=== PATIENT | female | born 1995 | race Caucasian/White ===

== ENCOUNTER → 2016-06-04 | Outpatient (CLI) | payer BC, OTHER ==
--- NOTE | 2016-06-04 14:27 | DIAGNOSTIC IMAGING REPORT ---
RIGHT WRIST W/NAVICULAR MIN 3 VIEWS CLINICAL HISTORY: RIGHT WRIST PAIN Right pain COMPARISON: None. DISCUSSION: The bones and joint spaces appear intact. There is no evidence of fracture, dislocation or bony disease. There is no evidence for soft tissue swelling. IMPRESSION: Negative study. Electronically signed by: Luis Alberto Díaz M.D. 06/04/2016 2:26 PM Dictated Date/Time: 06/04/2016 2:25 PM
== END | disposition home or self-care (01) ==
LOC: C.RDSM 14:18
PROVIDERS: ATTEND Family Medicine
DX: M25.531 Pain in right wrist (principal)

== ENCOUNTER → 2017-01-28 | Outpatient (CLI) | payer BC, OTHER ==
--- NOTE | 2017-01-28 07:55 | DIAGNOSTIC IMAGING REPORT ---
MRI THE RIGHT KNEE NO CONTRAST CLINICAL HISTORY: Right medial knee pain status post trauma COMPARISON STUDY: Conventional graphic study dated 01/16/2017 FINDINGS: Imaging was performed in the sagittal, coronal, and axial planes. There are no areas of marrow edema to indicate occult fracture or bone bruise. The quadriceps and patellar tendons appear intact. The anterior and posterior cruciate ligaments appear intact. There is no pathologic joint fluid. The medial and lateral collateral ligaments appear intact. No tears of the medial meniscus are visualized. There is a horizontal tear of the lateral meniscus. IMPRESSION: 1. Horizontal tear of the lateral meniscus 2. No evidence of cruciate ligament disruption. No evidence of collateral ligament disruption. Electronically signed by: Lyndon Otto M.D. 01/28/2017 7:53 AM Dictated Date/Time: 01/28/2017 7:40 AM
== END | disposition home or self-care (01) ==
PROVIDERS: ATTEND Family Medicine
DX: M25.561 Pain in right knee (principal); S83.281A Other tear of lateral meniscus, current injury, right knee, initial encounter; X58.XXXA Exposure to other specified factors, initial encounter

== ENCOUNTER → 2017-06-23 | Outpatient (CLI) | payer BC, OTHER ==
--- NOTE | 2017-06-23 12:04 | DIAGNOSTIC IMAGING REPORT ---
RIGHT FIFTH FINGER 3 VIEWS CLINICAL HISTORY: Fifth finger pain. FINDINGS: 3 views of the right fifth finger are obtained. No prior studies are available for comparison at the time of dictation. The skeletal structures are well mineralized. There is a nondistracted and minimally angulated horizontal fracture through the proximal shaft of the fifth distal phalanx. Overlying soft tissue edema is identified. No additional fracture is seen. The fifth metacarpophalangeal and interphalangeal joints are preserved. IMPRESSION: Fracture of the fifth distal phalanx as above. Electronically signed by: Phill Javier M.D. 06/23/2017 12:03 PM Dictated Date/Time: 06/23/2017 12:02 PM
== END | disposition home or self-care (01) ==
LOC: C.RDSM 12:00
PROVIDERS: ATTEND Orthopaedic Surgery Sports Medicine
DX: S62.636A Displaced fracture of distal phalanx of right little finger, initial encounter for closed fracture (principal); X58.XXXA Exposure to other specified factors, initial encounter

== ENCOUNTER → 2017-07-29 | Outpatient (CLI) | payer BC, OTHER ==
--- NOTE | 2017-07-29 09:13 | DIAGNOSTIC IMAGING REPORT ---
R KNEE 4 OR MORE CLINICAL HISTORY: RIGHT KNEE TWISTING INJURY/EVAL MENISCUS pain COMPARISON: 01/16/2017 DISCUSSION: The bones and joint spaces appear intact. There is no evidence of fracture, dislocation or bony disease. There is no evidence for soft tissue swelling. IMPRESSION: Negative study. No change from the prior study. The above report was generated using voice recognition software. It may contain grammatical, syntax or spelling errors. Electronically signed by: Luis Alberto Díaz M.D. 07/29/2017 9:11 AM Dictated Date/Time: 07/29/2017 9:10 AM
== END | disposition home or self-care (01) ==
LOC: C.RDSM 09:08
PROVIDERS: ATTEND Family Medicine
DX: S89.91XA Unspecified injury of right lower leg, initial encounter (principal); X58.XXXA Exposure to other specified factors, initial encounter

== ENCOUNTER → 2017-07-31 | Outpatient (CLI) | payer BC, OTHER ==
--- NOTE | 2017-07-31 15:44 | DIAGNOSTIC IMAGING REPORT ---
R LOWER EXT JOINT WITHOUT CLINICAL HISTORY: RT KNEE INJURY trauma. Pain. TECHNIQUE: MRI multi axial acquisition COMPARISON STUDY: 01/28/2017 FINDINGS: Patient continues to have a small short segment horizontal tear mid aspect lateral meniscus. There is small linear extension to the inferior meniscal surface. It is slightly less prominent compared to the prior study which may indicate partial interval healing. There are no new or interval findings. The medial meniscus is unremarkable in configuration. The articular services throughout. A be intact. There is no significant joint effusion. There is no evidence for chondromalacia patella. Cruciate ligaments remain intact. Medial and lateral collateral ligament complexes remain unremarkable. IMPRESSION: 1. Small persistent short segment horizontal tear mid aspect lateral meniscus. 2. This may show a partial degree of interval healing with a small decrease in size compared to the prior exam. 3. Remainder the study is unremarkable. The above report was generated using voice recognition software. It may contain grammatical, syntax or spelling errors. Electronically signed by: Luis Alberto Díaz M.D. 07/31/2017 3:43 PM Dictated Date/Time: 07/31/2017 3:37 PM
== END | disposition home or self-care (01) ==
LOC: C.MRI 14:42
PROVIDERS: ATTEND Family Medicine
DX: S89.91XA Unspecified injury of right lower leg, initial encounter (principal); X58.XXXA Exposure to other specified factors, initial encounter